=== PATIENT | male | born 2000 | race Caucasian/White ===

== ENCOUNTER 2020-09-26 10:10 | Emergency (ER) | payer OTHER ==
[~2020-09-26] VITALS: Ht 165.1 cm; Wt 50.2 kg
--- NOTE | 2020-09-26 10:25 | NUR ---
Provider at bedside to do eval
[2020-09-26 10:36] VITALS: BP 108/64
--- NOTE | 2020-09-26 11:35 | NUR ---
Pt spoke with provider about doing x-ray as a possibility to know about constipation, but pt felt wasn't necessary.Patient given discharge instructions and they have confirmed that they understand the instructions. Patient ambulatory with steady gait. No questions at time of discharge.
== END 2020-09-26 11:37 | disposition home or self-care (01) ==
LOC: ED 10:45
DX: R10.84 Generalized abdominal pain (principal); R11.0 Nausea
CPT/HCPCS: 99282

== ENCOUNTER 2020-10-13 10:44 | Emergency (ER) | payer BC, OTHER ==
[~2020-10-13] VITALS: Ht 165.1 cm; Wt 49.9 kg
[2020-10-13 12:19] VITALS: BP 103/54
== END 2020-10-13 13:25 | disposition home or self-care (01) ==
LOC: ED 12:56
DX: L60.0 Ingrowing nail (principal)
CPT/HCPCS: 99283

== ENCOUNTER 2020-12-15 18:25 | Emergency (ER) | payer BC ==
[~2020-12-15] VITALS: Ht 165.1 cm; Wt 49.8 kg
--- NOTE | 2020-12-15 19:29 | NUR ---
pt presents to ed with c/o lump on testicle x1 week, denies pain or painful urination. antoine Sylvia at bedside for eval
--- NOTE | 2020-12-15 19:51 | NUR ---
us at bedside
[2020-12-15 20:19] LABS: MICROSCOPIC NOT IND
[2020-12-15 20:34] VITALS: BP 120/83
--- NOTE | 2020-12-15 21:43 | NUR ---
pt educated on dc instructions, verbalized understanding. ambulatory to dc desk with steady gait.
== END 2020-12-15 21:45 | disposition home or self-care (01) ==
LOC: ED 21:39
DX: I86.1 Scrotal varices (principal); L72.0 Epidermal cyst
CPT/HCPCS: 76870; 81003; 99284